=== PATIENT | male | born 1975 | race Two or more races ===

== ENCOUNTER 2016-06-28 23:55 | Emergency (ER) | payer OTHER ==
[~2016-06-28] VITALS: Ht 157.5 cm; Wt 68.0 kg
[2016-06-29] MEDS ORDERED: NKM (00:10)
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
[2016-06-29] MEDS ORDERED: KEFLEX500 MG ORAL (01:19)
[2016-06-29 01:20] VITALS: BP 139/86
[2016-06-29 01:25] VITALS: BP 139/86
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
== END 2016-06-29 01:25 | disposition home or self-care (01) ==
LOC: EMR 06-29 00:23
DX: S61.412A Laceration without foreign body of left hand, initial encounter (principal); W01.10XA Fall on same level from slipping, tripping and stumbling with subsequent striking against unspecified object, initial encounter; Y92.009 Unspecified place in unspecified non-institutional (private) residence as the place of occurrence of the external cause; Y99.8 Other external cause status
CPT/HCPCS: 12001; 73130; 99284; Z7502

== ENCOUNTER 2016-07-05 12:52 | Emergency (ER) | payer OTHER ==
[~2016-07-05] VITALS: Ht 160 cm; Wt 81.6 kg
[~2016-07-05 12:52] MED LIST: KEFLEX500 MG ORAL; NKM
[2016-07-05 13:10] VITALS: BP 149/89
[2016-07-05] MEDS ORDERED: IBUPROFEN600 MG ORAL (13:37)
[2016-07-05 14:11] VITALS: BP 149/89
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
== END 2016-07-05 14:00 | disposition home or self-care (01) ==
LOC: EMR 13:30
DX: S61.411D Laceration without foreign body of right hand, subsequent encounter (principal); L02.91 Cutaneous abscess, unspecified
CPT/HCPCS: 99283

== ENCOUNTER 2016-10-14 12:34 | Emergency (ER) | payer SELFPAY ==
[~2016-10-14] VITALS: Ht 162.6 cm; Wt 86.2 kg
[~2016-10-14 12:34] MED LIST changes: +IBUPROFEN600 MG ORAL
--- NOTE | 2016-10-14 14:17 | Emergency Room Report ---
History of Present Illness General Chief Complaint: Lower Extremity Injury Source: Patient Present Illness HPI 41-year-old male presents emergency department complaining of lower extremity weakness, 7/10 pain, described as cramping in the bilateral calves x 3 days, in addition to paresthesias in the lateral toes bilaterally. Patient denies low back pain denies recent trauma or fall patient denies past medical history. Denies nausea vomiting fevers chills, incontinence abdominal pain, diarrhea. Patient does report intermittent constipation and new onset itchy rash to the anterior chest times one day. Denies gross numbness/ tingling or complete loss of sensation or gross motor movements of the extremities, incontinence of bowel or bladder. Denies CP, Palpitations, LOC, AMS, dizziness, Changes in Vision, Sensation, paresthesias, or a sudden severe headache. Allergies: Coded Allergies: No Known Allergies (Unverified , 06/29/16) Patient History Past Medical History: see triage record Past Surgical History: none Pertinent Family History: none Immunizations: UTD Reviewed Nursing Documentation: PMH: Agreed, PSxH: Agreed Nursing Documentation-PMH Past Medical History: No Stated History Review of Systems All Other Systems: negative except mentioned in HPI Physical Exam Vital Signs Date Time Temp Pulse Resp B/P Pulse Ox O2 Delivery O2 Flow Rate FiO2 10/14/16 12:46 98.2 137 18 132/78 98 Room Air Sp02 EP Interpretation: reviewed, abnormal - pt is tachycardic at 137, states he gets nervous at the doctors office. General Appearance: no apparent distress, alert, GCS 15, non-toxic Head: normocephalic, atraumatic Eyes: bilateral eye PERRL, bilateral eye normal inspection ENT: hearing grossly normal, normal pharynx, no angioedema, normal voice Neck: full range of motion, supple/symm/no masses Respiratory: chest non-tender, lungs clear, normal breath sounds, speaking full sentences Cardiovascular #1: regular rate, rhythm, no edema Cardiovascular #2: 2+ dorsalis pedis (R), 2+ dorsalis pedis (L) Musculoskeletal: back normal, gait/station normal, normal range of motion, non- tender, tender - pt reports tightness only in the calves and plantar feet bilaterally, no thigh involvement, no spinal TTP, FROM with out pain, no swelling, no erythema, good pedal pulses, good capillary refill, no evidence to suggest DVT, no varicose veins, calf size is equal bilaterally, achilles reflex is present and equal bilaterally. Neurologic: alert, oriented x3, responsive, motor strength/tone normal, sensory intact, cerebellar normal, normal gait, speech normal, no pronator Psychiatric: judgement/insight normal, memory normal, mood/affect normal Skin: normal color, warm/dry, well hydrated, rash - blanching indurated coalescent rash on the anterior chest, no lesions elsewhere. Lymphatic: no adenopathy Medical Decision Making PA Attestation Dr. Jang is my supervising Physician whom patient management has been discussed with. Diagnostic Impression: Primary Impression: Paresthesia of bilateral legs Additional Impression: Arthralgia Qualified Codes: M25.50 - Pain in unspecified joint ER Course Pt. presents to the ED c/o Bilateral LE weakness, and numbness x 3 days, no back pain or injury. strenuous job/pulls sheet metal. no recent travel. Ddx considered but are not limited to Neuropathy, paresthesia, electrolyte imbalance, cardiac dysrhythmia, stroke, DVT, cyanocobalamin deficiency. nerve palsy, neuritis Vital signs: Pt. is afebrile, pt. is Tachycardic at 137. H&PE are most consistent with paresthesia will do basic labs and check EKG/ Troponin. ORDERS: -EKG : NSR 134BPM no acute ST changes -preliminary ed interpretation by Dr. Jang. -CBC: elevated hemoglobin and hct. -CMP: mildly elevated glucose, mild elevation in LFT's -CK: mildly elevated EK at 155 -CK-MB: unremarkable -Troponin: WNL -UDS: Negative ED INTERVENTIONS: -Benadryl PO -30mg IV Toradol I do not suspect an emergent condition at this time given pt. benign PE, and relatively normal laboratory results. with current presentation pt. is stable for close outpatient follow up. - D/w pt. to follow up with Neurologist if conservative treatment does not relieve symptoms or for further evaluation. d/w Pt. follow up with PCP for evaluation of abnormal laboratory results. DISCHARGE: At this time pt. is stable for d/c to home. Will provide printed patient care instructions, and any necessary prescriptions. Care plan and follow up instructions have been discussed with the patient prior to discharge. Labs Test 10/14/16 14:39 10/14/16 14:50 Urine Opiates Screen Negative (NEGATIVE) Urine Barbiturates Screen Negative (NEGATIVE) Phencyclidine (PCP) Screen Negative (NEGATIVE) Urine Amphetamines Screen Negative (NEGATIVE) Urine Benzodiazepines Screen Negative (NEGATIVE) Urine Cocaine Screen Negative (NEGATIVE) Urine Marijuana (THC) Screen Negative (NEGATIVE) White Blood Count 13.0 K/UL (4.8-10.8) Red Blood Count 5.84 M/UL (4.70-6.10) Hemoglobin 19.0 G/DL (14.2-18.0) Hematocrit 56.3 % (42.0-52.0) Mean Corpuscular Volume 96 FL (80-99) Mean Corpuscular Hemoglobin 32.5 PG (27.0-31.0) Mean Corpuscular Hemoglobin Concent 33.8 G/DL (32.0-36.0) Red Cell Distribution Width 11.6 % (11.6-14.8) Platelet Count 248 K/UL (150-450) Mean Platelet Volume 8.0 FL (6.5-10.1) Neutrophils (%) (Auto) 75.2 % (45.0-75.0) Lymphocytes (%) (Auto) 15.8 % (20.0-45.0) Monocytes (%) (Auto) 8.0 % (1.0-10.0) Eosinophils (%) (Auto) 0.1 % (0.0-3.0) Basophils (%) (Auto) 0.9 % (0.0-2.0) Sodium Level 137 mEQ/L (135-145) Potassium Level 3.5 mEQ/L (3.4-4.9) Chloride Level 93 mEQ/L (98-107) Carbon Dioxide Level 24 mEQ/L (20-30) Anion Gap 20 (5-15) Blood Urea Nitrogen 14 mg/dL (7-23) Creatinine 1.1 mg/dL (0.7-1.2) Estimat Glomerular Filtration Rate > 60 mL/min (>60) Glucose Level 147 mg/dL (74-106) Calcium Level 9.8 mg/dL (8.6-10.2) Total Bilirubin 0.7 mg/dL (0.0-1.2) Aspartate Amino Transf (AST/SGOT) 52 U/L (5-40) Alanine Aminotransferase (ALT/SGPT) 79 U/L (3-41) Alkaline Phosphatase 76 U/L (40-129) Total Creatine Kinase 188 U/L (38-174) Creatine Kinase MB < 1.5 ng/mL (< 6.7) Creatine Kinase MB Relative Index Troponin I < 0.30 ng/mL (<=0.30) Total Protein 8.8 g/dL (6.6-8.7) Albumin 4.9 g/dL (3.5-5.2) Globulin 3.9 g/dL Albumin/Globulin Ratio 1.2 (1.0-2.7) EKG Diagnostic Results EP Interpretation: Dr. Jang Rate: normal Rhythm: NSR ST Segments: no acute changes ASA given to the pt in ED: No PA Scribe Text This EKG was reviewed and preliminary ED interpretation by Dr. Jang. Last Vital Signs Date Time Temp Pulse Resp B/P Pulse Ox O2 Delivery O2 Flow Rate FiO2 10/14/16 12:46 98.2 137 18 132/78 98 Room Air Disposition: HOME, SELF-CARE Condition: Stable Scripts Docusate Sodium* (COLACE*) 100 Mg Capsule 100 MG ORAL TWICE A DAY, #60 CAP Prov: Simran Willams 10/14/16 Ibuprofen* (MOTRIN*) 600 Mg Tablet 600 MG ORAL THREE TIMES A DAY, #30 TAB 0 Refills Prov: Simran Willams 10/14/16 Patient Instructions: Paresthesia, Qurd-et-Ddia Additional Instructions: Take medications as directed. Follow up with PCP in 3-5 days Return sooner to ED if new symptoms occur, or current symptoms become worse. - Please note that this Emergency Department Report was dictated using [employer] dietician technology software, occasionally this can lead to erroneous entry secondary to interpretation by the dictation equipment. Simran Willams Oct 14, 2016 14:17
[2016-10-14 15:21] VITALS: BP 132/78
[2016-10-14 15:22] LABS: BASOPHILS % (AUTO) 0.9 % (0.0-2.0); EOSINOPHILS % (AUTO) 0.1 % (0.0-3.0); LYMPHOCYTES % (AUTO) 15.8 % (20.0-45.0); MEAN CORPUSCULAR HEMOGLOBIN 32.5 PG (27.0-31.0); MEAN CORPUSCULAR HGB CONC 33.8 G/DL (32.0-36.0); MEAN CORPUSCULAR VOLUME 96 FL (80-99); NEUTROPHILS % (AUTO) 75.2 % (45.0-75.0); PLATELET COUNT 248 K/UL (150-450); RED BLOOD COUNT 5.84 M/UL (4.70-6.10); RED CELL DISTRIBUTION WIDTH 11.6 % (11.6-14.8)
[2016-10-14 15:29] LABS: TROPONIN I < 0.30 ng/mL (<=0.30)
[2016-10-14 15:35] LABS: ALANINE AMINOTRANSFERASE 79 U/L (3-41); ALBUMIN/GLOBULIN RATIO 1.2 (1.0-2.7); ANION GAP 20 (5-15); ASPARTATE AMINO TRANSFERASE 52 U/L (5-40); CALCIUM 9.8 mg/dL (8.6-10.2); CARBON DIOXIDE 24 mEQ/L (20-30); CHLORIDE 93 mEQ/L (98-107); CREATININE 1.1 mg/dL (0.7-1.2); GLOMERULAR FILTRATION RATE > 60 mL/min (>60); HEMOLYSIS 15; POTASSIUM 3.5 mEQ/L (3.4-4.9); SODIUM 137 mEQ/L (135-145); TOTAL PROTEIN 8.8 g/dL (6.6-8.7)
[2016-10-14 15:41] LABS: CKMB < 1.5 ng/mL (< 6.7)
[2016-10-14] MEDS ORDERED: Ketorolac 30mg Inj IV ONE (16:15)
[2016-10-14] MEDS ORDERED: IBUPROFEN600 MG ORAL (16:21)
[2016-10-14 16:30] VITALS: BP 132/78
[2016-10-14] MEDS ORDERED: COLACE100 MG ORAL (16:38)
--- NOTE | 2016-10-15 18:35 | Cardiology Report ---
APPROVED REPORT EKG Measurement Heart [id number] FL [id number] Sinus tachycardia Otherwise normal ECG
== END 2016-10-14 16:30 | disposition home or self-care (01) ==
LOC: EMR 14:57
DX: R20.2 Paresthesia of skin (principal); M25.572 Pain in left ankle and joints of left foot; M25.571 Pain in right ankle and joints of right foot; R53.1 Weakness; R21 Rash and other nonspecific skin eruption
CPT/HCPCS: 36415; 80053; 80300; 82550; 82553; 84484; 85025; 93005; 96374; 99284; J1885